=== PATIENT | female | born 2005 | race Hispanic/Latino ===

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

== ENCOUNTER → 2025-04-12 | Outpatient (CLI) | payer OTHER ==
[~2025-04-12] MED LIST changes: +IBUP80TA PO; +MIRA3350 PO
== END ==
LOC: M PLAIMG 10:45
PROVIDERS: ATTEND Nurse Practitioner Family
DX: R51.9 Headache, unspecified (principal)

== ENCOUNTER 2025-04-25 22:05 | Emergency (ER) | payer OTHER ==
[~2025-04-25] VITALS: Ht 157.5 cm; Wt 131.0 kg
[~2025-04-25 22:05] MED LIST changes: -IBUP-1022 PO; +IBUP600T42 PO
[2025-04-26 00:19] VITALS: BP 122/74; TEMP 97; O2SAT 99
== END 2025-04-26 01:14 | disposition left against medical advice (07) ==
LOC: M ED 22:05
DX: Z53.21 Procedure and treatment not carried out due to patient leaving prior to being seen by health care provider (principal)

== ENCOUNTER → 2025-04-26 | Outpatient (REF) | payer OTHER ==
[2025-04-26 13:41] LABS: Trichomonas vaginalis (AMP) NOT DETECTED (NEGATIVE)
[2025-04-26 14:04] LABS: GC DNA AMPLIFICATION NEGATIVE (NEGATIVE)
== END ==
LOC: M LAB REF 12:13
PROVIDERS: ATTEND Nurse Practitioner Family
DX: R30.0 Dysuria (principal); Z11.3 Encounter for screening for infections with a predominantly sexual mode of transmission

== ENCOUNTER → 2025-06-06 | Outpatient (REF) | payer OTHER ==
[2025-06-06 15:44] LABS: CHOLESTEROL LEVEL 202.0 MG/DL (<200); CHOLESTEROL RISK RATIO 3.92 (<5); IRON (FE) 53.0 UG/DL (50-170); LDL CHOLESTEROL 130.2 MG/DL (<100); NON-HDL-C 150.6 MG/DL; PERCENT SATURATION 15.2 % (13.2-45.0); TRIGLYCERIDES LEVEL 102.0 MG/DL (<150)
[2025-06-06 16:13] LABS: ESTIMATED AVERAGE GLUCOSE 105.0 MG/DL (60-110)
== END ==
LOC: M LAB REF 14:52
PROVIDERS: ATTEND Nurse Practitioner Family
DX: E66.813 Obesity, class 3 (principal); E61.1 Iron deficiency

== ENCOUNTER → 2025-08-01 | Outpatient (REF) | payer OTHER ==
[~2025-08-01] MED LIST changes: +BENZ1LOZ9 PO; +PRED10TA2 PO
[2025-08-01 14:10] LABS: Trichomonas vaginalis (AMP) NOT DETECTED (NEGATIVE)
[2025-08-01 14:33] LABS: GC DNA AMPLIFICATION NEGATIVE (NEGATIVE)
== END ==
LOC: M LAB REF 12:22
PROVIDERS: ATTEND Physician Assistant
DX: Z20.2 Contact with and (suspected) exposure to infections with a predominantly sexual mode of transmission (principal)

== ENCOUNTER 2025-08-03 23:41 | Emergency (ER) | payer OTHER ==
[~2025-08-03] VITALS: Ht 157.5 cm; Wt 124.1 kg
[~2025-08-03 23:41] MED LIST changes: -BENZ1LOZ9 PO; -PRED10TA2 PO
[2025-08-04 00:43] LABS: BASO # 0.1 10^3/uL (0.0-0.2); BASO % 0.5 % (0.0-1.0); EOS # 0.1 10^3/uL (0.0-0.5); EOS % 1.0 % (0.0-3.0); LYMPH # 2.3 10^3/uL (1.5-5.0); LYMPH % 23.9 % (24.0-44.0); MONO # 0.8 10^3/uL (0.0-0.8); MONO % 7.9 % (2.0-8.0); NEUTROPHILS # 6.4 10^3/uL (1.5-8.5); NEUTROPHILS % 66.4 % (36.0-66.0); PLATELET COUNT, AUTOMATED 407 10^3/uL (150-450)
[2025-08-04 01:07] LABS: C REACTIVE PROTEIN QUANTITATIV 1.68 MG/DL (<1.0)
[2025-08-04 01:09] LABS: HCG, SERUM QUALITATIVE NEGATIVE (NEGATIVE); MONO SCRN NEGATIVE (NEGATIVE)
[2025-08-04 01:11] LABS: CALCIUM LEVEL 8.9 MG/DL (8.5-10.1); CARBON DIOXIDE LEVEL 27 MMOL/L (20-31); CHLORIDE LEVEL 102 MMOL/L (98-107); CREATININE FOR GFR 0.51 MG/DL (0.55-1.30); GLOMERULAR FILTRATION RATE > 90.0 (>60); POTASSIUM SERUM 4.5 MMOL/L (3.5-5.1); SODIUM LEVEL 138 MMOL/L (136-145)
[2025-08-04] MEDS ORDERED: AMOX500C PO (01:22)
[2025-08-04] MEDS ORDERED: PRED10TA2 PO (01:22)
[2025-08-04] MEDS ORDERED: BENZ1LOZ9 PO (01:22)
[2025-08-04 01:35] VITALS: BP 131/81; TEMP 96.9; O2SAT 100
== END 2025-08-04 01:38 | disposition home or self-care (01) ==
LOC: M ED 23:41
DX: J03.90 Acute tonsillitis, unspecified (principal); Z91.09 Other allergy status, other than to drugs and biological substances; Z79.2 Long term (current) use of antibiotics; Z79.52 Long term (current) use of systemic steroids; Z79.899 Other long term (current) drug therapy
CPT/HCPCS: 80048; 84703; 85025; 85652; 86140; 86308; 87486; 87581; 87633; 87798; 87880; 96374; 99284; J1100